=== PATIENT | female | born 1950 | race Caucasian/White ===

== ENCOUNTER 2016-05-19 08:22 | Day surgery (SDC) | payer MEDICARE ==
[2016-05-19] MEDS ORDERED: LACTATED RINGERS 1,000 ML ONE (08:26)
[2016-05-19] MEDS ORDERED: IV START KIT ONE (08:26)
[2016-05-19] MEDS ORDERED: MIDAZOLAM HCL 5 MG/5 ML VIAL ONE (09:19)
[2016-05-19] MEDS ORDERED: FENTANYL 250 MCG/5 ML AMP ONE (09:20)
--- NOTE | 2016-05-23 09:44 | SURGPATH ---
[facility] [address] [place] [id number] Patient Name: JENA RANDHAWA MR#: [id number] : 1950 Gender: F Specimen #: [id number] Collected: 05/19/2016 Received: 05/20/2016 Reported: 05/23/2016 Submitting Phys: GILBERT OBANDO Copy To Phys: [facility] RAKAN Rodriguez Clinical History / Pre-Operative Diagnosis: HISTORY OF POLYPS Specimen Source / Surgical Procedure Performed: RECTAL POLYP Interpretation: RECTAL POLYP, BIOPSY: - TUBULAR ADENOMA Electronically Signed Out Teo Ferrell M.D. Gross Description: The specimen is received in a formalin filled container labeled with the patient's name and "rectal polyp". A polypoid carpenter biopsy is 0.5 x 0.4 x 0.3 cm. Bisected. Totally embedded in one cassette. Beau Tavarez Microscopic Description: Microscopic performed. 1: 87884 D12.8
== END 2016-05-19 10:43 | disposition home or self-care (01) ==
LOC: SDC 08:22
PROVIDERS: ATTEND Internal Medicine Gastroenterology
PROC: 0DBP8ZX Excision of Rectum, Via Natural or Artificial Opening Endoscopic, Diagnostic (ICD-10-PCS; principal; 2016-05-19)
DX: Z12.11 Encounter for screening for malignant neoplasm of colon (principal); D12.8 Benign neoplasm of rectum; Z80.0 Family history of malignant neoplasm of digestive organs; E03.9 Hypothyroidism, unspecified; Z88.2 Allergy status to sulfonamides; Z88.1 Allergy status to other antibiotic agents; Z79.82 Long term (current) use of aspirin